=== PATIENT | female | born 1995 | race Caucasian/White ===

== ENCOUNTER 2017-07-18 19:07 | Emergency (ER) | payer BC ==
[~2017-07-18] VITALS: Ht 167.6 cm; Wt 56.7 kg
[~2017-07-18 19:07] MED LIST: AMOX-559 PO; AZIT-1 PO; CEPH-13 PO; CROM13SP10 NS; Dayquil PO; HYDR-4309 PO; IBUP600T22 PO; LOR5/325 PO; NYST100040 PO; PROM-110 PO
--- NOTE | 2017-07-18 19:15 | ER Report ---
History and Physical Time Seen By MD: 19:15 HPI/ROS CHIEF COMPLAINT: Dizziness HISTORY OF PRESENT ILLNESS: This is a 21-year-old female who presents to the emergency department for a trach and dizziness. Patient states that she had some dizziness last night progressed through the day went to urgent care, they "did blood work and did some other stuff" and sent the patient home. Coronary the patient she was instructed to come to the emergency department if she developed a headache, patient states she did develop a headache this evening was about a 9 out of 10 not the worst headache she ever had currently she states the headache is improved to about a 6 out of 10. Does have photophobia no phonophobia. Patient states that when she stands up she feels very dizzy, denies aches, chills, fevers, chest pain or shortness of breath. Denies nausea and dysuria. REVIEW OF SYSTEMS: Constitutional: No fever, no chills. Eyes: No discharge. ENT: No sore throat. Cardiovascular: No chest pain, no palpitations. Respiratory: No cough, no shortness of breath. Gastrointestinal: No abdominal pain, no vomiting. Genitourinary: No hematuria. Musculoskeletal: No back pain. Skin: No rashes. Neurological: As above. Allergies: Coded Allergies: No Known Drug Allergies (Unverified , 07/18/17) Home Meds Discontinued Reported Medications Cromolyn Sodium (NASAL ALLERGY SPRAY) Unknown Strength [place].pump, 1-2 SPRAYS NS PRN Y for CONGESTION 03/24/16 [Dayquil] Unknown Strength No Conflict Check, 1 TAB PO PRN Y for COUGH 03/24/16 Discontinued Scripts Amoxicillin/Pot Clav 875-125 Mg Tab (AUGMENTIN 875-125 TABLET) 1 Each Tablet, 1 TAB PO BID, #14 TAB 0 Refills Prov:TERE MARK DNP, [facility] 03/24/16 Past Medical/Surgical History He has a past medical and surgical history of migraines, . Reviewed Nurses Notes: Yes Hx Smoking: No Smoking Status: Never Smoker Hx Substance Use Disorder: No Hx Alcohol Use: Yes Constitutional Vital Sign - Last 24 Hours 07/18/17 07/18/17 07/18/17 07/18/17 19:07 19:12 19:16 19:33 Temp 97.6 Pulse ??? 70 Resp 20 B/P (MAP) 137/79 (98) 137/79 127/90 (102) Pulse Ox 100 O2 Delivery Room Air 07/18/17 07/18/17 19:37 20:00 Pulse 66 B/P (MAP) 115/74 (88) Pulse Ox 97 Physical Exam General Appearance: The patient is alert, has no immediate need for airway protection and no signs of toxicity. Eyes: Pupils equal and round no pallor or injection. EOMs intact. ENT, Mouth: Mucous membranes are moist. Respiratory: There are no retractions, lungs are clear to auscultation. Cardiovascular: Regular rate and rhythm, no murmurs, clicks or rubs. Gastrointestinal: Abdomen is soft and non tender, no masses, bowel sounds normal. Neurological: Alert and oriented 4. Following all commands. Moving all extremities. No focal neuro deficits. Passes fingers to nose, heel to rodriguez, shoulder shrug. No facial droop. Cranial nerves II through XII intact. Skin: Warm and dry, no rashes. Musculoskeletal: Neck is supple non tender. Extremities are nontender, nonswollen and have full range of motion. DIFFERENTIAL DIAGNOSIS: After history and physical exam differential diagnosis was considered for headache including but not limited to subarachnoid hemorrhage , migraine headache, tension headache and infectious causes such as meningitis, pharyngitis and sinusitis. Medical Decision Making Data Points Result Diagram: 07/18/17194407/18/171944 Laboratory Hematology Test 07/18/17 19:32 07/18/17 19:45 Urine HCG, Qualitative Negative (NEGATIVE) Red Blood Count 5.23 M/uL (4.17-5.56) Mean Corpuscular Volume 87.7 fL (80.0-96.0) Mean Corpuscular Hemoglobin 30.5 pg (26.0-33.0) Mean Corpuscular Hemoglobin Concent 34.8 g/dL (32.0-36.0) Red Cell Distribution Width 12.8 % (11.5-14.5) Mean Platelet Volume 8.5 fL (7.2-11.1) Neutrophils (%) (Auto) 58.5 % (39.4-72.5) Lymphocytes (%) (Auto) 30.1 % (17.6-49.6) Monocytes (%) (Auto) 9.5 % (4.1-12.4) Eosinophils (%) (Auto) 1.1 % (0.4-6.7) Basophils (%) (Auto) 0.8 % (0.3-1.4) Nucleated RBC Relative Count (auto) 0.0 /100WBC Neutrophils # (Auto) 2.4 K/uL (2.0-7.4) Lymphocytes # (Auto) 1.3 K/uL (1.3-3.6) Monocytes # (Auto) 0.4 K/uL (0.3-1.0) Eosinophils # (Auto) 0.0 K/uL (0.0-0.5) Basophils # (Auto) 0.0 K/uL (0.0-0.1) Nucleated RBC Absolute Count (auto) 0.00 K/uL Sodium Level 138 mmol/L (137-145) Potassium Level 3.5 mmol/L (3.5-5.0) Chloride Level 103 mmol/L (98-107) Carbon Dioxide Level 25 mmol/L (22-31) Blood Urea Nitrogen 15 mg/dl (7-18) Creatinine 0.90 mg/dl (0.52-1.04) Glomerular Filtration Rate Calc > 60.0 Random Glucose 94 mg/dl (75-110) Calcium Level 8.9 mg/dl (8.4-10.2) Total Bilirubin 0.4 mg/dl (0.2-1.3) Aspartate Amino Transf (AST/SGOT) 31 U/L (0-35) Alanine Aminotransferase (ALT/SGPT) 31 U/L (0-56) Alkaline Phosphatase 53 U/L (0-126) Total Protein 7.4 gm/dl (6.3-8.2) Albumin 4.2 g/dl (3.5-5.0) Chemistry Test 07/18/17 19:32 07/18/17 19:45 Urine HCG, Qualitative Negative (NEGATIVE) White Blood Count 4.2 k/uL (4.5-11.0) Red Blood Count 5.23 M/uL (4.17-5.56) Hemoglobin 16.0 g/dL (12.0-16.0) Hematocrit 45.9 % (34.0-47.0) Mean Corpuscular Volume 87.7 fL (80.0-96.0) Mean Corpuscular Hemoglobin 30.5 pg (26.0-33.0) Mean Corpuscular Hemoglobin Concent 34.8 g/dL (32.0-36.0) Red Cell Distribution Width 12.8 % (11.5-14.5) Platelet Count 184 K/uL (150-450) Mean Platelet Volume 8.5 fL (7.2-11.1) Neutrophils (%) (Auto) 58.5 % (39.4-72.5) Lymphocytes (%) (Auto) 30.1 % (17.6-49.6) Monocytes (%) (Auto) 9.5 % (4.1-12.4) Eosinophils (%) (Auto) 1.1 % (0.4-6.7) Basophils (%) (Auto) 0.8 % (0.3-1.4) Nucleated RBC Relative Count (auto) 0.0 /100WBC Neutrophils # (Auto) 2.4 K/uL (2.0-7.4) Lymphocytes # (Auto) 1.3 K/uL (1.3-3.6) Monocytes # (Auto) 0.4 K/uL (0.3-1.0) Eosinophils # (Auto) 0.0 K/uL (0.0-0.5) Basophils # (Auto) 0.0 K/uL (0.0-0.1) Nucleated RBC Absolute Count (auto) 0.00 K/uL Glomerular Filtration Rate Calc > 60.0 Calcium Level 8.9 mg/dl (8.4-10.2) Total Bilirubin 0.4 mg/dl (0.2-1.3) Aspartate Amino Transf (AST/SGOT) 31 U/L (0-35) Alanine Aminotransferase (ALT/SGPT) 31 U/L (0-56) Alkaline Phosphatase 53 U/L (0-126) Total Protein 7.4 gm/dl (6.3-8.2) Albumin 4.2 g/dl (3.5-5.0) Urinalysis Test 07/18/17 19:32 Urine HCG, Qualitative Negative (NEGATIVE) EKG/Imaging EKG Interpretation 12 lead EKG: EKG time 1936. Rhythm: Sinus rhythm, ventricular rate 63 bpm. [place]: normal QRS: normal ST segments: No ST depression or elevation. Inverted T waves in V2 V3 flat T waves, V4, V5. ED Course/Re-evaluation Clinical Indication for ER IV: Hydration, IV Access ED Course The patient was admitted to room. History and physical were obtained. Differential diagnoses were considered. An IV was started. 1 L normal saline bolus was given. A CBC, CMP were obtained. Laboratory studies unremarkable. EKG showing normal sinus rhythm. 30 mg IV Toradol, 12.5 mg IV Phenergan. Patient states that she feels better now, her headache is basically resolved she is not feeling dizzy at this time. Negative orthostatic vital signs. I reviewed these results with the patient and she is requesting to go home at this time. I did tell the patient it's likely she was under hydrated which was causing the dizziness as well as a headache. I did tell her to take ibuprofen and/or Tylenol as needed for her headaches keep up on dehydration and follow up with her primary care provider. Patient had no other questions or concerns and was discharged home. Decision to Disposition Date: Jul 18, 2017 Decision to Disposition Time: 20:49 Depart Departure Latest Vital Signs Vital Signs Date Time Temp Pulse Resp B/P (MAP) Pulse Ox O2 Delivery O2 Flow Rate FiO2 07/18/17 20:00 115/74 (88) 07/18/17 19:37 66 97 07/18/17 19:16 97.6 20 Room Air Impression: Primary Impression: Headache Additional Impression: Dizziness Condition: Improved Disposition: HOME OR SELF-CARE Referrals: TERE MARK DNP, [facility] (PCP) Patient Instructions: Acute Headache (ED) Additional Instructions: Drink plenty of water. Get plenty of rest. Take ibuprofen or Tylenol as needed for the headaches. You can try caffeine in addition to the medications for the headaches. Follow-up with her primary care provider for any other needs you may have. Return to the emergency Department for worse symptoms. Problem Qualifiers Primary Impression: Headache Headache type: unspecified Headache chronicity pattern: acute headache Intractability: not intractable Qualified Codes: R51 - Headache MERLIN CHOUDHURY DO[facility] Jul 18, 2017 19:15
[2017-07-18] MEDS ORDERED: KETOROLAC 30 MG/ML VIAL IVP ONE (19:30)
[2017-07-18] MEDS ORDERED: NS(*) 0.9% 1000 ML BAG 1,000 ML IV ONE (19:30)
[2017-07-18] MEDS ORDERED: PROMETHAZINE 25 MG/ML 1 ML AMP IVP ONE (19:30)
--- NOTE | 2017-07-18 19:48 | EKG ---
FACILITY: [facility] - [place] PATIENT NAME: TODD PACKER : [id number] MR: [id number] V: [id number] EXAM DATE: ORDERING PHYSICIAN: MERLIN CHOUDHURY TECHNOLOGIST: TIAGO Kennedy Reason : DIZZINESS Blood Pressure : / mmHG Vent. Rate : 063 BPM Atrial Rate : 063 BPM P-R Int : 156 ms QRS Dur : 094 ms QT Int : 414 ms P-R-T Axes : 052 082 047 degrees QTc Int : 423 ms Normal sinus rhythm Low voltage QRS Cannot rule out Anteroseptal infarct (cited on or before 07-JAN-2017) Abnormal ECG When compared with ECG of 07-JAN-2017 04:34, No significant change was found Confirmed by IMELDA GARCIA ([id number] on 07/18/2017 11:06:46 PM Referred By: Confirmed By:IMELDA GARCIA
[2017-07-18 19:58] LABS: PLATELET COUNT, AUTOMATED 184 K/uL (150-450)
[2017-07-18 20:30] VITALS: BP 98/66
== END 2017-07-18 21:07 | disposition home or self-care (01) ==
LOC: ER 19:26
DX: R51 Headache (principal); R42 Dizziness and giddiness
CPT/HCPCS: 81025; 85025; 93005; 96361; 96374; 96375; 99283; J1885; J2550; J7030; 82040; 82247; 82310; 82374; 82435; 82565; 82947; 84075; 84132; 84155; 84295; 84450; 84460; 84520